=== PATIENT | male | born 1940 | race Caucasian/White ===

== ENCOUNTER 2018-12-16 11:32 | Emergency (ER) | payer BC, MEDICARE, OTHER ==
--- NOTE | 2018-12-16 11:47 | EDM.PDOC ---
ED HPI GENERAL MEDICAL PROBLEM - General Chief Complaint: Neuro Symptoms/Deficits Stated Complaint: STROKE? Time Seen by Provider: 12/16/18 11:35 Source of Information: Reports: Patient, EMS History Limitations: Reports: No Limitations - History of Present Illness INITIAL COMMENTS - FREE TEXT/NARRATIVE: 78-year-old male brought in by EMS with onset of left-sided weakness and left facial droop with dysarthria over the past hour and 20 minutes. He has a history of a previous stroke 2 years ago. Symptoms sound like they started or at least became worse an hour and 20 minutes ago but it's somewhat unclear because he claims he "felt it coming on last night". He can't specifically say what he means, he denies any weakness last night. He has had no other symptoms such as headache, visual disturbance, chest pain, shortness of breath, fever or chills, shortness of breath or nausea or vomiting. He has not missed any medications. Initial EMS evaluation on scene revealed a blood glucose of 159, patient was hypertensive at 206/117, afebrile, and in a normal sinus rhythm with first-degree block. On arrival to the emergency room the patient still had left facial droop and weakness, with slight decreased strength of left grasp. Lower extremity strength was difficult to assess because of chronic left hip pain. Onset: Unknown/Unsure (Symptoms at least worsened or possibly started 80 minutes ago) Associated Symptoms: Reports: Weakness (Left face and left arm). 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/IO denies Pain Score (Numeric/FACES): 0 - Related Data Allergies Allergy/AdvReac Type Severity Reaction Status Date / Time No Known Allergies Allergy Verified 05/28/15 09:54 Home Meds: Home Meds Finasteride [Proscar] 5 mg PO DAILY 12/16/18 [History] Metoprolol Tartrate [Lopressor] 50 mg PO BID 12/16/18 [History] Pantoprazole Sodium [Protonix] 40 mg PO DAILY 12/16/18 [History] Solifenacin [Vesicare] 5 mg PO DAILY 12/16/18 [History] Tamsulosin [Tamsulosin 24 Hr] 0.4 mg PO DAILY 12/16/18 [History] Thiamine [Vitamin B-1] 100 mg PO DAILY 12/16/18 [History] amLODIPine Besylate [Norvasc] 10 mg PO DAILY 12/16/18 [History] ED ROS GENERAL - Review of Systems Review Of Systems: See Below Constitutional: Denies: Fever, Chills, Malaise HEENT: Denies: Vision Change Respiratory: Denies: Shortness of Breath Cardiovascular: Denies: Chest Pain GI/Abdominal: Denies: Abdominal Pain, Nausea, Vomiting : Reports: Incontinence (Chronic) Neurological: Denies: Dizziness, Headache Psychiatric: Reports: No Symptoms ED EXAM, NEURO - Physical Exam Exam: See Below Exam Limited By: No Limitations General Appearance: Alert, No Apparent Distress Eye Exam: Bilateral Eye: EOMI Throat/Mouth: Other (On arrival to the emergency room the patient had significant obvious left facial droop and dysarthria) Head Exam: Atraumatic Respiratory/Chest: No Respiratory Distress, Lungs Clear Cardiovascular: Regular Rate, Rhythm Neurological: Alert, Oriented x 3, Other (Left facial droop and left arm weakness is present) Course - Vital Signs Last Recorded V/S: Last Vital Signs Temp 99.1 F 12/16/18 11:55 Pulse 73 12/16/18 11:55 Resp 10 L 12/16/18 11:55 BP 204/115 H 12/16/18 11:55 Pulse Ox 97 12/16/18 11:55 - Orders/Labs/Meds Orders: Active Orders 24 hr Category Date Time Status Head wo Cont [CT] Stat Exams 12/16/18 11:33 Taken Labs: Laboratory Tests 12/16/18 12/16/18 12/16/18 Range/Units 11:40 11:40 11:40 WBC 7.1 (4.5-11.0) K/uL RBC 4.88 (4.30-5.90) M/uL Hgb 14.9 (12.0-15.0) g/dL Hct 45.8 (40.0-54.0) % MCV 94 (80-98) fL MCH 31 (27-31) pg MCHC 33 (32-36) % Plt Count 236 (150-400) K/uL Neut % (Auto) 65 (36-66) % Lymph % (Auto) 25 (24-44) % [place] % (Auto) 8 H (2-6) % Eos % (Auto) 2 (2-4) % Baso % (Auto) 0 (0-1) % PT 11.1 (9.5-12.0) sec INR 1.03 (0.80-1.20) Sodium 140 (140-148) mmol/L Potassium 4.2 (3.6-5.2) mmol/L Chloride 103 (100-108) mmol/L Carbon Dioxide 28 (21-32) mmol/L Anion Gap 8.8 (5.0-14.0) mmol/L BUN 14 (7-18) mg/dL Creatinine 1.3 (0.8-1.3) mg/dL Est Cr Clr Drug Dosing TNP Estimated GFR (MDRD) 53 L (>60) Glucose 129 H (74-106) mg/dL Calcium 9.0 (8.5-10.1) mg/dL Total Bilirubin 0.7 (0.2-1.0) mg/dL AST 18 (15-37) U/L ALT 13 (12-78) U/L Alkaline Phosphatase 78 (46-116) U/L Total Protein 7.4 (6.4-8.2) g/dL Albumin 3.6 (3.4-5.0) g/dL Globulin 3.8 H (2.3-3.5) g/dL Albumin/Globulin Ratio 1.0 L (1.2-2.2) - Re-Assessments/Exams Free Text/Narrative Re-Assessment/Exam: 12/16/18 12:17 CBC, CMP and INR was obtained. Patient was urgently transferred to the CT scan for a head CT. This showed significant atrophy but no hemorrhage, several small lacunar strokes were present. Patient returned from CT scan and his symptoms were improving, his dysarthria was improved and facial droop had lessened. There was still some objective findings. Air care was on the ground waiting so acceptance was obtained from Dr. Perez at [facility] in [place], and the patient was transferred. No further intervention. 12/16/18 16:17 INR was 1, CBC and CMP were completely nonspecific and basically normal. Departure - Departure Time of Disposition: 12:21 Disposition: DC/Tfer to Other 70 Clinical Impression: Acute cerebrovascular accident (CVA) Hypertension Qualifiers: Hypertension type: essential hypertension Qualified Code(s): I10 - Essential ( primary) hypertension - Discharge Information Instructions: Coronary Artery Disease, Male, Ischemic Stroke, [id number] Referrals: PCP,None [Primary Care Provider] - Forms: ED Department Discharge Care Plan Goals: Patient was urgently transferred to [facility] in [place] for neuro evaluation and possible stroke intervention. He was accepted at 11:[address] Perez. - My Orders Last 24 Hours: My Active Orders 12/16/18 11:33 Head wo Cont [CT] Stat - Assessment/Plan Last 24 Hours: My Active Orders 12/16/18 11:33 Head wo Cont [CT] Stat
--- NOTE | 2018-12-17 11:47 | CRLCT ---
Final Report: INDICATION: Left-sided weakness; stroke . Comparison: None. TECHNIQUE: CT head without intravenous contrast. FINDINGS: No intracranial hemorrhage. No mass lesions. No evidence of shift of the midline structures. The calvarium is unremarkable. Extensive periventricular low density diffuse secondary to small vessel disease. Brain atrophy. Small lacunar infarcts identified in the basal ganglia bilaterally. IMPRESSION: 1. Extensive periventricular low densities secondary small vessel disease. 2. No intracranial hemorrhage or mass lesions. 3. Brain atrophy. Please note that all CT scans at this facility use dose modulation, iterative reconstruction, and/or weight-based dosing when appropriate to reduce radiation dose to as low as reasonably achievable. Dictated by Noy Scott MD @ Dec 16 2018 11:52AM Signed by: Noy Scott MD @12/16/2018 11:56:14 AM (Electronic Signature) MTDD
== END 2018-12-16 12:21 | disposition other institution (70) ==
LOC: JP.ED 11:32
DX: I63.9 Cerebral infarction, unspecified (principal); I10 Essential (primary) hypertension; Z79.899 Other long term (current) drug therapy
CPT/HCPCS: 36415; 70450; 80053; 85025; 85610; 99285-25

== ENCOUNTER 2019-01-02 04:10 | Emergency (ER) | payer MEDICARE ==
[2019-01-02] MEDS ORDERED: Aspirin 81 MG Tab.Chew PO ONE (04:34)
--- NOTE | 2019-01-02 04:37 | EDM.PDOC ---
ED HPI GENERAL MEDICAL PROBLEM - General Chief Complaint: Cardiovascular Problem Stated Complaint: MEDICAL VIA NORTH Time Seen by Provider: 01/02/19 04:32 Source of Information: Reports: Patient, RN Notes Reviewed History Limitations: Reports: No Limitations - History of Present Illness INITIAL COMMENTS - FREE TEXT/NARRATIVE: 78-year-old gentleman presents emergency department today complaint of chest pain, he had chest pain earlier in the afternoon 1 bout of nausea and vomiting in the early evening but arrived at the emergency department at 4 AM. At this time is chest pain-free no nausea vomiting no diaphoresis no shortness of breath , recently had CVA earlier this month complains of no neurologic changes denies Pain Score (Numeric/FACES): 0 - Related Data Allergies Allergy/AdvReac Type Severity Reaction Status Date / Time No Known Allergies Allergy Verified 01/02/19 04:13 Home Meds: Home Meds Finasteride [Proscar] 5 mg PO DAILY 12/16/18 [History] Metoprolol Tartrate [Lopressor] 50 mg PO BID 12/16/18 [History] Pantoprazole Sodium [Protonix] 40 mg PO DAILY 12/16/18 [History] Solifenacin [Vesicare] 5 mg PO DAILY 12/16/18 [History] Tamsulosin [Tamsulosin 24 Hr] 0.4 mg PO DAILY 12/16/18 [History] Thiamine [Vitamin B-1] 100 mg PO DAILY 12/16/18 [History] amLODIPine Besylate [Norvasc] 10 mg PO DAILY 12/16/18 [History] Lisinopril 20 mg PO DAILY 01/02/19 [History] levETIRAcetam [Keppra] 500 mg PO TID 01/02/19 [History] Past Medical History HEENT History: Reports: Impaired Vision Cardiovascular History: Reports: Hypertension Respiratory History: Reports: Other (See Below) Gastrointestinal History: Reports: Other (See Below) Other Gastrointestinal History: stage 3 kidney disease Musculoskeletal History: Reports: Other (See Below) Other Musculoskeletal History: r hip pain chronic Neurological History: Reports: CVA 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 - Infectious Disease History Infectious Disease History: Reports: Mumps - Past Surgical History GI Surgical History: Reports: Hernia, Inguinal Social & Family History - Tobacco Use Smoking Status *Q: Former Smoker Years of Tobacco use: 55 Packs/Tins Daily: 1 Used Tobacco, but Quit: Yes Month/Year Tobacco Last Used: 2013 Second Hand Smoke Exposure: No - Caffeine Use Caffeine Use: Reports: Coffee - Alcohol Use Days Per Week of Alcohol Use: 0 - Recreational Drug Use Recreational Drug Use: No ED ROS GENERAL - Review of Systems Review Of Systems: See Below Constitutional: Reports: No Symptoms HEENT: Reports: No Symptoms Respiratory: Reports: No Symptoms Cardiovascular: Reports: Chest Pain GI/Abdominal: Reports: Nausea, Vomiting : Reports: No Symptoms Musculoskeletal: Reports: No Symptoms ED EXAM, GENERAL - Physical Exam Exam: See Below Exam Limited By: No Limitations General Appearance: Alert, WD/WN, No Apparent Distress Neck: Normal Inspection, Supple, Non-Tender, Full Range of Motion Respiratory/Chest: No Respiratory Distress, Lungs Clear, Normal Breath Sounds, No Accessory Muscle Use, Chest Non-Tender Cardiovascular: Regular Rate, Rhythm, No Murmur GI/Abdominal: Soft, Non-Tender Course - Vital Signs Last Recorded V/S: Last Vital Signs Temp 98.6 F 01/02/19 04:16 Pulse 66 01/02/19 04:16 Resp 21 H 01/02/19 04:16 BP 168/78 H 01/02/19 04:16 Pulse Ox 91 L 01/02/19 04:16 - Orders/Labs/Meds Orders: Active Orders 24 hr Category Date Time Status Cardiac Monitoring [RC] .As Directed Care 01/02/19 04:35 Active EKG Documentation Completion [RC] ASDIRECTED Care 01/02/19 04:35 Active EKG 12 Lead [EK] Stat Ther 01/02/19 04:35 Ordered Labs: Laboratory Tests 01/02/19 01/02/19 Range/Units 04:40 04:40 WBC 10.8 (4.5-11.0) K/uL RBC 4.27 L (4.30-5.90) M/uL Hgb 13.0 (12.0-15.0) g/dL Hct 40.5 (40.0-54.0) % MCV 95 (80-98) fL MCH 30 (27-31) pg MCHC 32 (32-36) % Plt Count 230 (150-400) K/uL Neut % (Auto) 87 H (36-66) % Lymph % (Auto) 6 L (24-44) % [place] % (Auto) 7 H (2-6) % Eos % (Auto) 0 L (2-4) % Baso % (Auto) 0 (0-1) % Sodium 141 (140-148) mmol/L Potassium 4.1 (3.6-5.2) mmol/L Chloride 103 (100-108) mmol/L Carbon Dioxide 26 (21-32) mmol/L Anion Gap 11.9 (5.0-14.0) mmol/L BUN 15 (7-18) mg/dL Creatinine 1.2 (0.8-1.3) mg/dL Est Cr Clr Drug Dosing 45.90 mL/min Estimated GFR (MDRD) 58 L (>60) Glucose 150 H (74-106) mg/dL Calcium 8.8 (8.5-10.1) mg/dL Total Bilirubin 1.8 H D (0.2-1.0) mg/dL AST 478 H D (15-37) U/L ALT 490 H (12-78) U/L Alkaline Phosphatase 153 H D (46-116) U/L Troponin I < 0.017 (0.000-0.056) ng/mL Total Protein 7.2 (6.4-8.2) g/dL Albumin 3.5 (3.4-5.0) g/dL Globulin 3.7 H (2.3-3.5) g/dL Albumin/Globulin Ratio 1.0 L (1.2-2.2) Meds: Medications Discontinued Medications Generic Name Dose Route Start Last Admin Trade Name Freq PRN Reason Stop Dose Admin Aspirin 324 mg 01/02/19 04:34 01/02/19 04:56 Aspirin PO 01/02/19 04:35 Not Given ONETIME ONE Departure - Departure Time of Disposition: 06:34 Disposition: Home, Self-Care 01 Condition: Fair Clinical Impression: Atypical chest pain Referrals: PCP,None [Primary Care Provider] - Forms: ED Department Discharge Additional Instructions: Continue with regular medications, Please followup with your primary care provider in 2-3 days if not better, please call return to the emergency department with worsening of symptoms. - My Orders Last 24 Hours: My Active Orders 01/02/19 04:35 Cardiac Monitoring [RC] .As Directed EKG Documentation Completion [RC] ASDIRECTED EKG 12 Lead [EK] Stat - Assessment/Plan Last 24 Hours: My Active Orders 01/02/19 04:35 Cardiac Monitoring [RC] .As Directed EKG Documentation Completion [RC] ASDIRECTED EKG 12 Lead [EK] Stat Plan: Assessment Acuity = acute Site and laterality = atypical chest pain Etiology = unknown etiology Manifestations = none Location of injury = Home Lab values = CBC unremarkable, CMP does have elevated liver enzymes AST at 478 AST of 490, EKG demonstrates a sinus rhythm with no signs of ischemia chest x- ray shows some atelectasis Plan Resume regular medications. Remained chest pain-free while in the emergency department him follow-up with his primary care to 3 days if not better This note was dictated using [employer] voice recognition software please call with any questions on syntax or grammar.
--- NOTE | 2019-01-02 05:55 | CRLCR ---
INDICATION: Chest pain TECHNIQUE: Chest 1 view COMPARISON: None FINDINGS: Cardiovascular and mediastinum: Normal heart size with atherosclerotic calcification and aortic tortuosity. Lungs and pleural spaces: Low lung volumes with some patchy airspace disease, greater on the right. Mild elevation right hemidiaphragm for Bones and soft tissues: No significant findings. IMPRESSION: Hypoaeration with patchy bibasilar airspace disease, likely atelectasis. Dictated by Portillo Chambers MD @ Jan 02 2019 5:51AM Signed by Dr. Portillo Chambers @ Jan 02 2019 5:53AM
== END 2019-01-02 08:39 | disposition home or self-care (01) ==
LOC: JP.ED 04:10
DX: R07.9 Chest pain, unspecified (principal); I10 Essential (primary) hypertension; Z79.899 Other long term (current) drug therapy; Z87.891 Personal history of nicotine dependence
CPT/HCPCS: 36415; 71045; 80053; 84484; 85025; 93005; 99283; 99285-25

== ENCOUNTER 2020-01-26 05:41 | Emergency (ER) | payer MEDICARE ==
--- NOTE | 2020-01-26 07:31 | EDM.PDOC ---
ED HPI GENERAL MEDICAL PROBLEM - General Chief Complaint: General Stated Complaint: MEDICAL VIA NORTH Time Seen by Provider: 01/26/20 07:12 Source of Information: Reports: Patient History Limitations: Reports: No Limitations - History of Present Illness INITIAL COMMENTS - FREE TEXT/NARRATIVE: 79-year-old resting quietly in the bed, has been here for over an hour but had not been seen when I arrived because of other acute patients. Over the last hour and a half has been resting quietly, he said he is "fine". He was sent in because of a fall at his assisted living, he said he was going to the bathroom and it "did not work out for him". He did not trip or stumble, his legs got weak so he just went to the floor. It is questionable how hard he has fallen, he does complain of some chronic back pain in the left hip seems sore. He has a gurgly cough but that is chronic since his stroke. No fevers or chills, no nausea or vomiting, no head injury, denies neck pain or shortness of breath. Onset: Unknown/Unsure (Sometime overnight) Location: Reports: Lower Extremity, Left (Only complaint I can get from the patient is his left hip is a little sore) Improves with: Reports: Other (Hip is painful to palpation and rotation) Associated Symptoms: Reports: Other (Chronic pulmonary congestion since stroke) - Related Data Allergies Allergy/AdvReac Type Severity Reaction Status Date / Time No Known Allergies Allergy Verified 01/26/20 06:06 Home Meds: Home Meds Finasteride [Proscar] 5 mg PO DAILY 12/16/18 [History] Metoprolol Tartrate [Lopressor] 50 mg PO BID 12/16/18 [History] Pantoprazole Sodium [Protonix] 40 mg PO DAILY 12/16/18 [History] Tamsulosin [Tamsulosin 24 Hr] 0.4 mg PO DAILY 12/16/18 [History] amLODIPine Besylate [Norvasc] 10 mg PO DAILY 12/16/18 [History] Lisinopril 20 mg PO DAILY 01/02/19 [History] levETIRAcetam [Keppra] 500 mg PO BID 01/02/19 [History] Acetaminophen [Tylenol] 650 mg PO Q6H PRN 11/28/19 [History] Ibuprofen 600 mg PO TID PRN 11/28/19 [History] Oxybutynin Chloride [Ditropan Xl] 5 mg PO TID 11/28/19 [History] Acetaminophen [Tylenol] 650 mg PO TID 01/03/20 [History] Magnesium Hydroxide [Milk of Magnesia] 30 ml PO DAILY PRN 01/03/20 [History] Miconazole Nitrate [Desenex] 43 gm TP ASDIRECTED 01/03/20 [History] Sertraline [Zoloft] 50 mg PO DAILY 01/03/20 [History] Past Medical History HEENT History: Reports: Impaired Vision Cardiovascular History: Reports: Hypertension Respiratory History: Reports: Other (See Below) Gastrointestinal History: Reports: Other (See Below) Other Gastrointestinal History: stage 3 kidney disease Musculoskeletal History: Reports: Other (See Below) Other Musculoskeletal History: R hip pain Neurological History: Reports: CVA 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 Denies: Shortness of Breath Cardiovascular: Denies: Chest Pain, Palpitations GI/Abdominal: Denies: Abdominal Pain, Nausea, Vomiting Musculoskeletal: Reports: Back Pain, Other (Left hip pain) Neurological: Reports: Confusion (According to the staff he is at some confusion which is unusual for the patient) Psychiatric: Reports: No Symptoms ED EXAM, GENERAL - Physical Exam Exam: See Below Exam Limited By: No Limitations General Appearance: Alert, No Apparent Distress Eye Exam: Bilateral Eye: EOMI Head: Atraumatic Neck: Supple, Non-Tender Respiratory/Chest: Rhonchi (Diffuse rhonchi, no wheezing) Cardiovascular: Regular Rate, Rhythm. No: Tachycardia GI/Abdominal: Soft, Non-Tender Extremities: Other (Patient reacts with tenderness or discomfort with palpation of the lateral left hip or passive rotation of the hip. There is no asymmetry or shortening or rotation of the legs.) Neurological: Alert, Confused (A little confused to time) Psychiatric: Normal Affect, Normal Mood (Very pleasant, answering questions appropriately) Skin Exam: Warm, Dry Course - Vital Signs Last Recorded V/S: Last Vital Signs Temp 97.9 F 01/26/20 06:08 Pulse 78 01/26/20 06:08 Resp 23 H 01/26/20 06:08 BP 142/77 H 01/26/20 06:08 Pulse Ox 94 L 01/26/20 06:08 - Orders/Labs/Meds Meds: Medications Discontinued Medications Generic Name Dose Route Start Last Admin Trade Name Yovana PRN Reason Stop Dose Admin Tramadol HCl 50 mg 01/26/20 07:57 01/26/20 08:11 Ultram PO 01/26/20 07:58 50 mg ONETIME ONE Administration - Re-Assessments/Exams Free Text/Narrative Re-Assessment/Exam: 01/26/20 07:30 A left hip x-ray will be obtained as well as a 1 view chest x-ray. He does not appear to have any acute problems with his hip x-ray is negative we may be able to get him back to his assisted living at the memory care unit. 01/26/20 07:57 Patient is a poor historian as he went back to x-ray and said his right hip hurt more than his left. The pelvis x-ray was obtained showing both hips, this was compared to previous and that stable with no new fracture. Chest x-ray also shows chronic basilar scarring or infiltrates, but are also stable. Patient was given 1 oral tramadol and will be discharged home. Departure - Departure Time of Disposition: 08:58 Disposition: Home, Self-Care 01 Clinical Impression: Weakness Fall Qualifiers: Encounter type: initial encounter Qualified Code(s): W19.XXXA - Unspecified fall, initial encounter Hip pain, chronic Qualifiers: Laterality: bilateral Qualified Code(s): M25.551 - Pain in right hip - Discharge Information Instructions: Weakness, [id number] Referrals: PCP,None [Primary Care Provider] - Forms: ED Department Discharge Care Plan Goals: Continue your current medications, and activity as tolerated. Recheck with your regular doctor if you have any persistent concerns, or return if worsening. Sepsis Event Note (ED) - Evaluation Sepsis Screening Result: No Definite Risk - Focused Exam Vital Signs: Vital Signs Temp Pulse Resp BP Pulse Ox 01/26/20 06:08 97.9 F 78 23 H 142/77 H 94 L 01/26/20 05:54 97.9 F 78 23 H 142/77 H 94 L
[2020-01-26] MEDS ORDERED: traMADol 50 MG Tab PO ONE (07:57)
--- NOTE | 2020-01-26 09:18 | CR ---
CHEST: Portable 01/26/2020 at 07 36 CLINICAL HISTORY:Fall, cough, hypoxia COMPARISON:2019 FINDINGS: There is chronic elevation right hemidiaphragm. There is persistent patchy density at the right lung base which may be scarring and/or chronic atelectasis. Less than optimal inspiration exaggerates lung markings. There is generalized interstitial prominence which is similar to prior study. There are atherosclerotic changes in the aorta. IMPRESSION: Poor inspiratory level exaggerates lung markings. There are some underlying chronic interstitial disease and some right basal subsegmental atelectasis. Hip Min 2V w Pelvis Bi CLINICAL HISTORY: Fall FINDINGS: There is severe deformity in the right hip with near total loss of the joint space as well as significant periarticular spurring. There is some flattening of the femoral head. There are moderate to severe changes in the left hip. No fracture is identified. 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
== END 2020-01-26 08:58 | disposition home or self-care (01) ==
LOC: JP.ED 05:41
DX: M25.551 Pain in right hip (principal); R53.1 Weakness; I12.9 Hypertensive chronic kidney disease with stage 1 through stage 4 chronic kidney disease, or unspecified chronic kidney disease; N18.30 Chronic kidney disease, stage 3 unspecified; Z86.73 Personal history of transient ischemic attack (TIA), and cerebral infarction without residual deficits; Z79.899 Other long term (current) drug therapy; Z87.891 Personal history of nicotine dependence
CPT/HCPCS: 71045; 73521; 99285; A9270; 99283

== ENCOUNTER 2020-09-05 14:21 | Emergency (ER) | payer MEDICARE ==
--- NOTE | 2020-09-05 15:30 | EDM.PDOC ---
ED HPI GENERAL MEDICAL PROBLEM - General Chief Complaint: Lower Extremity Injury/Pain Stated Complaint: X-RAY RIGHT HIP Time Seen by Provider: 09/05/20 15:25 Source of Information: Reports: Patient, Family, Old Records History Limitations: Reports: No Limitations - History of Present Illness INITIAL COMMENTS - FREE TEXT/NARRATIVE: 80 yo male resident of a local [facility] was sent over for worsening of chronic R hip pain after a couple of recent falls. Onset: Unknown/Unsure Duration: Day(s):, Constant Location: Reports: Lower Extremity, Right Quality: Reports: Ache Severity: Moderate Improves with: Reports: Rest Worsens with: Reports: Movement Context: Reports: Trauma Associated Symptoms: Reports: No Other Symptoms Treatments TEMPERER: Reports: Other (see below) (none) - Related Data Allergies Allergy/AdvReac Type Severity Reaction Status Date / Time No Known Allergies Allergy Verified 09/05/20 15:18 Home Meds: Home Meds Finasteride [Proscar] 5 mg PO DAILY 12/16/18 [History] Tamsulosin [Tamsulosin 24 Hr] 0.4 mg PO DAILY 12/16/18 [History] amLODIPine Besylate [Norvasc] 10 mg PO DAILY 12/16/18 [History] Lisinopril 10 mg PO DAILY 01/02/19 [History] levETIRAcetam [Keppra] 500 mg PO BID 01/02/19 [History] Acetaminophen [Tylenol] 650 mg PO Q6H PRN 11/28/19 [History] Ibuprofen 600 mg PO TID PRN 11/28/19 [History] Oxybutynin Chloride [Ditropan Xl] 5 mg PO TID 11/28/19 [History] Acetaminophen [Tylenol] 650 mg PO TID 01/03/20 [History] Magnesium Hydroxide [Milk of Magnesia] 30 ml PO DAILY PRN 01/03/20 [History] Miconazole Nitrate [Desenex] 43 gm TP ASDIRECTED 01/03/20 [History] Sertraline [Zoloft] 1.5 tab PO DAILY 01/03/20 [History] Ergocalciferol (Vitamin D2) [Vitamin D2] 1.25 mg PO DAILY 09/05/20 [History] Famotidine 40 mg PO DAILY 09/05/20 [History] Past Medical History HEENT History: Reports: Impaired Vision Cardiovascular History: Reports: Hypertension Respiratory History: Reports: Other (See Below) Gastrointestinal History: Reports: Other (See Below) Other Gastrointestinal History: stage 3 kidney disease Musculoskeletal History: Reports: Other (See Below) Other Musculoskeletal History: R hip pain Neurological History: Reports: CVA 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 - Infectious Disease History Infectious Disease History: Reports: Chicken Pox, Measles, Mumps - Past Surgical History GI Surgical History: Reports: Hernia, Inguinal Social & Family History - Caffeine Use Caffeine Use: Reports: Coffee Review of Systems - Review of Systems Review Of Systems: See Below Constitutional: Reports: No Symptoms Respiratory: Reports: No Symptoms Cardiovascular: Reports: No Symptoms Genitourinary: Reports: No Symptoms Musculoskeletal: Reports: No Symptoms Skin: Reports: No Symptoms Neurological: Reports: No Symptoms ED EXAM, GENERAL - Physical Exam Exam: See Below Exam Limited By: No Limitations General Appearance: Alert, WD/WN, No Apparent Distress Eye Exam: Bilateral Eye: Normal Inspection Ears: Normal External Exam, Normal Canal, Hearing Loss Ear Exam: Bilateral Ear: Auricle Normal, Canal Normal Nose: Normal Inspection, No Blood Throat/Mouth: Normal Inspection, Normal Lips, Normal Oropharynx, Normal Voice, No Airway Compromise Head: Atraumatic, Normocephalic Neck: Normal Inspection Respiratory/Chest: No Respiratory Distress, Lungs Clear, Normal Breath Sounds, No Accessory Muscle Use Cardiovascular: Regular Rate, Rhythm, No Edema Extremities: Normal Inspection, No Pedal Edema, Leg Pain (R hip), Limited Range of Motion (R hip area). No: Normal Range of Motion, Non-Tender, Pedal Edema Neurological: Alert, Oriented, CN II-XII Intact, No Motor/Sensory Deficits Psychiatric: Normal Affect, Normal Mood Skin Exam: Warm, Dry, Intact, Normal Color, No Rash Course - Vital Signs Text/Narrative:: [facility] Ortho called @ 1600h Last Recorded V/S: Last Vital Signs Temp 36.4 C 09/05/20 15:30 Pulse 77 09/05/20 15:30 Resp 16 09/05/20 15:30 BP 112/68 09/05/20 15:30 Pulse Ox 95 09/05/20 15:30 - Orders/Labs/Meds Orders: Active Orders 24 hr Category Date Time Status Chest 1V Frontal [CR] Stat Exams 09/05/20 15:37 Ordered Hip Min 2V or 3V w Pelvis Rt [CR] Stat Exams 09/05/20 14:46 Taken Sodium Chloride 0.9% [Saline Flush] Med 09/05/20 15:37 Ordered 10 ml FLUSH ASDIRECTED PRN Saline Lock Insert [OM.PC] Routine Oth 09/05/20 15:37 Ordered Medication Orders Sodium Chloride (Sodium Chloride 0.9% 10 Ml Syringe) 10 ml FLUSH ASDIRECTED PRN PRN Reason: Keep Vein Open Meds: Medications Generic Name Dose Route Start Last Admin Trade Name Freq PRN Reason Stop Dose Admin Sodium Chloride 10 ml 09/05/20 15:37 Sodium Chloride 0.9% 10 Ml Syringe FLUSH ASDIRECTED PRN Keep Vein Open Discontinued Medications Generic Name Dose Route Start Last Admin Trade Name Freq PRN Reason Stop Dose Admin Oxycodone/Acetaminophen 1 tab 09/05/20 15:37 Acetaminophen/Oxycodone 325-5 Mg Tab PO 09/05/20 15:38 ONETIME STA - Radiology Interpretation Free Text/Narrative:: L hip fx-intertroch hip fx with avulsion CXR-neg Departure - Departure Time of Disposition: 16:25 Disposition: DC/Tfer to Acute Hospital 02 Condition: Fair Clinical Impression: Fracture, intertrochanteric, right femur Qualifiers: Encounter type: initial encounter Fracture type: closed Fracture alignment: nondisplaced Qualified Code(s): S72.144A - Nondisplaced intertrochanteric fracture of right femur, initial encounter for closed fracture Clinical Impression: (Ruled Out): Intertrochanteric fracture of left hip - Discharge Information Referrals: PCP,None [Primary Care Provider] - Forms: ED Department Discharge Sepsis Event Note (ED) - Focused Exam Vital Signs: Vital Signs Temp Pulse Resp BP Pulse Ox 09/05/20 15:30 36.4 C 77 16 112/68 95 09/05/20 15:07 36.4 C 77 16 112/68 95 - My Orders Last 24 Hours: My Active Orders 09/05/20 14:46 Hip Min 2V or 3V w Pelvis Rt [CR] Stat 09/05/20 15:37 Chest 1V Frontal [CR] Stat Sodium Chloride 0.9% [Saline Flush] 10 ml FLUSH ASDIRECTED PRN Saline Lock Insert [OM.PC] Routine - Assessment/Plan Last 24 Hours: My Active Orders 09/05/20 14:46 Hip Min 2V or 3V w Pelvis Rt [CR] Stat 09/05/20 15:37 Chest 1V Frontal [CR] Stat Sodium Chloride 0.9% [Saline Flush] 10 ml FLUSH ASDIRECTED PRN Saline Lock Insert [OM.PC] Routine
[2020-09-05] MEDS ORDERED: Sodium Chloride 0.9% 10 ML Syringe FLUSH PRN (15:37)
[2020-09-05] MEDS ORDERED: Acetaminophen/oxyCODONE 325-5 MG Tab PO STA (15:37)
--- NOTE | 2020-09-05 15:43 | CR ---
Hip Min 2V or 3V w Pelvis Rt CLINICAL HISTORY: Pain, fall FINDINGS: There is a comminuted intertrochanteric fracture with avulsion of the lesser trochanter. Patient has underlying severe degenerative change in the right hip. 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
--- NOTE | 2020-09-06 09:44 | CR ---
CHEST: Portable 09/05/2020 at 3:53 PM CLINICAL HISTORY:Preop COMPARISON:2019 FINDINGS: There is some pleural parenchymal scarring in the right lung base. There is minimal patchy density in the left lower lung field which is similar to prior studies and likely represent some scarring and fibrosis. Heart and pulmonary vascularity are normal. There are atherosclerotic changes in the aorta. Impression: Pleural parenchymal scarring in both lung bases left greater than right No acute cardiopulmonary process.
== END 2020-09-05 16:51 ==
LOC: JP.ED 14:21
DX: S72.144A Nondisplaced intertrochanteric fracture of right femur, initial encounter for closed fracture (principal); I10 Essential (primary) hypertension; Z20.822 Contact with and (suspected) exposure to COVID-19; W19.XXXA Unspecified fall, initial encounter
CPT/HCPCS: 71045; 73502; 99284; A9270; U0002

== ENCOUNTER 2020-11-19 18:53 | Emergency (ER) | payer MEDICARE ==
--- NOTE | 2020-11-19 20:34 | EDM.PDOC ---
ED HPI GENERAL MEDICAL PROBLEM - General Chief Complaint: Respiratory Problem Stated Complaint: MEDICAL VIA [facility] Time Seen by Provider: 11/19/20 19:01 Source of Information: Reports: EMS History Limitations: Reports: Other (Patient arrives from [facility] with history of significant dementia) - History of Present Illness INITIAL COMMENTS - FREE TEXT/NARRATIVE: Abby is an 80-year-old male sent in from [facility] for evaluation of possible aspiration. Patient was in his usual state of health until he went to the [facility]. Afterwards they did a spotcheck oximetry and found him to be hypoxic an SPO2 between 86 and 88%. EMS was called and they have put nasal cannula with 4 L bringing up to 95%. The patient has not had any fever. He has not had a significant cough although he did have some coughing after eating today and they were concerned of a possible aspiration event. The patient has a history of a stroke and dementia. He does have a POLST stating he is DNR/DNI. The daughter who lives in [place] had asked the [facility] to observe the patient and they in turn sent him in for evaluation. The accompanying paperwork from the [facility] facility was reviewed as well as the patient's [facility] medical record chart. - Related Data Allergies Allergy/AdvReac Type Severity Reaction Status Date / Time No Known Allergies Allergy Verified 09/05/20 15:18 Home Meds: Home Meds Finasteride [Proscar] 5 mg PO DAILY 12/16/18 [History] Tamsulosin [Tamsulosin 24 Hr] 0.4 mg PO DAILY 12/16/18 [History] amLODIPine Besylate [Norvasc] 10 mg PO DAILY 12/16/18 [History] Lisinopril 10 mg PO DAILY 01/02/19 [History] levETIRAcetam [Keppra] 500 mg PO BID 01/02/19 [History] Acetaminophen [Tylenol] 650 mg PO Q6H PRN 11/28/19 [History] Ibuprofen 600 mg PO TID PRN 11/28/19 [History] Oxybutynin Chloride [Ditropan Xl] 5 mg PO TID 11/28/19 [History] Acetaminophen [Tylenol] 650 mg PO TID 01/03/20 [History] Magnesium Hydroxide [Milk of Magnesia] 30 ml PO DAILY PRN 01/03/20 [History] Miconazole Nitrate [Desenex] 43 gm TP ASDIRECTED 01/03/20 [History] Sertraline [Zoloft] 1.5 tab PO DAILY 01/03/20 [History] Ergocalciferol (Vitamin D2) [Vitamin D2] 1.25 mg PO DAILY 09/05/20 [History] Famotidine 40 mg PO DAILY 09/05/20 [History] Past Medical History HEENT History: Reports: Impaired Vision Cardiovascular History: Reports: Hypertension Respiratory History: Reports: Other (See Below) Gastrointestinal History: Reports: Other (See Below) Other Gastrointestinal History: stage 3 kidney disease Genitourinary History: Reports: Urinary Incontinence Musculoskeletal History: Reports: Other (See Below) Other Musculoskeletal History: R hip pain Neurological History: Reports: CVA 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 Psychiatric History: Reports: Dementia - Infectious Disease History Infectious Disease History: Reports: Chicken Pox, Measles, Mumps - Past Surgical History Head Surgeries/Procedures: Reports: None HEENT Surgical History: Reports: Cataract Surgery Cardiovascular Surgical History: Reports: None Respiratory Surgical History: Reports: None GI Surgical History: Reports: Hernia, Inguinal Neurological Surgical History: Reports: None Musculoskeletal Surgical History: Reports: Other (See Below) Other Musculoskeletal Surgeries/Procedures:: hip pain Dermatological Surgical History: Reports: None Social & Family History - Tobacco Use Tobacco Use Status *Q: Unknown Ever Used Tobacco - Caffeine Use Caffeine Use: Reports: Other Other Caffeine Use: unknown ED ROS GENERAL - Review of Systems Review Of Systems: Unable To Obtain Reason Not Obtained: Patient has significant dementia, not able to answer questions ED EXAM, GENERAL - Physical Exam Exam: See Below Exam Limited By: No Limitations General Appearance: Alert, Obese Eye Exam: Bilateral Eye: PERRL Nose: Normal Inspection Throat/Mouth: Normal Inspection, Normal Oropharynx, No Airway Compromise Head: Atraumatic, Normocephalic Neck: Normal Inspection Respiratory/Chest: No Accessory Muscle Use, Decreased Breath Sounds (Bibasilar decreased breath sounds), Crackles (Bibasilar crackles), Rhonchi (Bibasilar rhonchi). No: Retractions Cardiovascular: Normal Peripheral Pulses, Regular Rate, Rhythm, No Murmur Peripheral Pulses: 2+: Radial (L), Radial (R) GI/Abdominal: Normal Bowel Sounds, Soft, Non-Tender Extremities: Normal Inspection Neurological: Alert, Inattentive, Unresponsive Psychiatric: Normal Affect, Normal Mood Skin Exam: Warm, Dry Lymphatic: No Adenopathy Course - Vital Signs Last Recorded V/S: Last Vital Signs Temp 36.0 C L 11/19/20 19:39 Pulse 82 11/19/20 19:39 Resp 16 11/19/20 19:39 BP 131/74 11/19/20 19:39 Pulse Ox 92 L 11/19/20 19:39 - Orders/Labs/Meds Orders: Active Orders 24 hr Category Date Time Status Chest 2V [CR] Stat Exams 11/19/20 19:05 Taken CULTURE BLOOD [BC] Urgent Lab 11/19/20 19:05 Received CULTURE BLOOD [BC] Urgent Lab 11/19/20 19:20 Received Blood Culture x2 Reflex Set [OM.PC] Urgent Oth 11/19/20 19:03 Ordered Labs: Laboratory Tests 11/19/20 11/19/20 11/19/20 Range/Units 19:03 19:03 19:05 WBC 7.9 (4.5-11.0) K/uL RBC 4.27 L (4.30-5.90) M/uL Hgb 12.6 (12.0-15.0) g/dL Hct 40.0 (40.0-54.0) % MCV 94 (80-98) fL MCH 30 (27-31) pg MCHC 32 (32-36) % Plt Count 323 (150-400) K/uL Neut % (Auto) 70.3 H (36-66) % Lymph % (Auto) 15.3 L (24-44) % [place] % (Auto) 11.1 H (2-6) % Eos % (Auto) 2.9 (2-4) % Baso % (Auto) 0.4 (0-1) % Puncture Site Rt.radial ABG pH 7.408 (7.350-7.450) ABG pCO2 38.5 (35.0-42.0) mmHg ABG pO2 62.4 L (75.0-100.0) mmHg ABG HCO3 23.8 (22.0-26.0) mmol/L ABG Total CO2 21.2 L (23.0-27.0) mmol/L ABG O2 Saturation 90.8 L (95.0-98.0) % ABG O2 Content 16.4 (15.0-23.0) %vol ABG Base Excess -0.1 mm/L ABG Hemoglobin 13.1 L (13.5-18.0) g/dL ABG Oxyhemoglobin 88.8 % ABG Carboxyhemoglobin 1.4 (0.0-1.6) % ABG Methemoglobin 0.8 % Trip Test Passed O2 Delivery Device Room air Sodium 140 (140-148) mmol/L Potassium 4.0 (3.6-5.2) mmol/L Chloride 101 (100-108) mmol/L Carbon Dioxide 24 (21-32) mmol/L Anion Gap 14.6 H (5.0-14.0) mmol/L BUN 28 H D (7-18) mg/dL Creatinine 1.9 H D (0.8-1.3) mg/dL Est Cr Clr Drug Dosing 28.02 mL/min Estimated GFR (MDRD) 34 L (>60) Glucose 148 H (74-106) mg/dL Calcium 8.6 (8.5-10.1) mg/dL Total Bilirubin 0.2 D (0.2-1.0) mg/dL AST 46 H D (15-37) U/L ALT 76 D (12-78) U/L Alkaline Phosphatase 185 H (46-116) U/L Total Protein 7.5 (6.4-8.2) g/dL Albumin 3.2 L (3.4-5.0) g/dL Globulin 4.3 H (2.3-3.5) g/dL Albumin/Globulin Ratio 0.7 L (1.2-2.2) - Re-Assessments/Exams Free Text/Narrative Re-Assessment/Exam: 11/19/20 20:34 I reviewed the patient's CBC showing a normal leukocyte count at 7.9 with a normal differential. Arterial blood gas on room air shows a pH of 7.408, CO2 of 38.5, PO2 of 62.4, bicarbonate of 23.8 with an SPO2 of 91%. Comprehensive metabolic profile shows a sodium of 140, potassium 4.0, chloride of 101, bicarbonate of 24, BUN of 28 with a creatinine of 1.9 and a glucose of 148. Liver enzymes are normal. Estimated GFR is 34. Chest x-ray is obtained and shows no significant infiltrates. There is bibasilar atelectasis and poor inspiratory effort when compared to previous chest x-rays there is no acute findings. At this time, I denies anything worrisome for an acute aspiration pneumonia. The patient is saturating 92% on room air the entire time he has been in the ED. I believe he is suitable for discharge back to [facility] so we will arrange for EMS to take him back. Departure - Departure Time of Disposition: 20:38 Disposition: DC/Tfer to Other 70 Clinical Impression: Hypoxia, History of CVA (cerebrovascular accident) - Discharge Information Instructions: Hypoxia Referrals: PCP,None [Primary Care Provider] - Care Plan Goals: Work-up today failed to demonstrate any worrisome findings for an aspiration event or aspiration pneumonia. Sepsis Event Note (ED) - Evaluation Sepsis Screening Result: No Definite Risk - Focused Exam Vital Signs: Vital Signs Temp Pulse Resp BP Pulse Ox 11/19/20 19:39 36.0 C L 82 16 131/74 92 L 11/19/20 18:53 36.0 C L 92 16 131/74 92 L - Problem List & Annotations (1) History of CVA (cerebrovascular accident) SNOMED Code(s): 708458460 Code(s): Z86.73 - PRSNL HX OF TIA (TIA), AND CEREB INFRC W/O RESID DEFICITS Status: Chronic Priority: Medium Current Visit: Yes (2) Hypoxia SNOMED Code(s): 197724541 Code(s): R09.02 - HYPOXEMIA Status: Acute Priority: Medium Current Visit: Yes - Problem List Review Problem List Initiated/Reviewed/Updated: Yes - My Orders Last 24 Hours: My Active Orders 11/19/20 19:03 Blood Culture x2 Reflex Set [OM.PC] Urgent 11/19/20 19:05 Chest 2V [CR] Stat CULTURE BLOOD [BC] Urgent 11/19/20 19:20 CULTURE BLOOD [BC] Urgent - Assessment/Plan Last 24 Hours: My Active Orders 11/19/20 19:03 Blood Culture x2 Reflex Set [OM.PC] Urgent 11/19/20 19:05 Chest 2V [CR] Stat CULTURE BLOOD [BC] Urgent 11/19/20 19:20 CULTURE BLOOD [BC] Urgent
--- NOTE | 2020-11-20 09:19 | CR ---
CHEST: Portable 11/19/2020 at 7:29 PM CLINICAL HISTORY:Hypoxia, possible aspiration COMPARISON:Multiple prior chest x-rays FINDINGS: There is patchy density in both lung bases. Some of this is chronic. Some of this may represent some patchy atelectasis. Underlying infiltrate is not excluded. There is mild elevation of the right hemidiaphragm which is new since prior study. There is air under the right hemidiaphragm. This may be within an interposed bowel loop but free air is not excluded. Impression: Patchy bibasal densities. Some of this is chronic. Some superimposed patchy atelectasis or patchy pneumonia is also consideration. Air under the right hemidiaphragm. This could represent an interposed bowel loop but free intraperitoneal air is not excluded. Left lateral decubitus image of the abdomen should be considered. Emergency room was notified of these findings at the time of this dictation at 9:15 AM
== END 2020-11-19 20:57 | disposition other institution (70) ==
LOC: JP.ED 18:53
DX: R09.02 Hypoxemia (principal); F03.90 Unspecified dementia, unspecified severity, without behavioral disturbance, psychotic disturbance, mood disturbance, and anxiety; I12.9 Hypertensive chronic kidney disease with stage 1 through stage 4 chronic kidney disease, or unspecified chronic kidney disease; N18.30 Chronic kidney disease, stage 3 unspecified; Z79.899 Other long term (current) drug therapy; Z86.73 Personal history of transient ischemic attack (TIA), and cerebral infarction without residual deficits
CPT/HCPCS: 36415; 36600; 71046; 71046-26; 80053; 82803; 85025; 87040; 99285-25

== ENCOUNTER 2021-09-09 09:10 | Inpatient (IN) | payer OTHER, MEDICARE ==
[2021-09-09] MEDS ORDERED: Pantoprazole 40 MG Vial IVPUSH ONE (09:39)
[2021-09-09] MEDS ORDERED: Sodium Chloride 0.9% 10 ML Syringe FLUSH PRN (09:39)
[2021-09-09] MEDS ORDERED: Octreotide 100 MCG/ML SDV IVPUSH ONE (09:40)
[2021-09-09] MEDS ORDERED: Lactated Ringers 1,000 ML IV ONE (09:40)
[2021-09-09] MEDS ORDERED: Ondansetron 4 MG/2 ML SDV IVPUSH ONE (09:42)
[2021-09-09] MEDS ORDERED: cefTRIAXone 1 GM in Sodium Chloride 0.9% 50 ML IV ONE (10:38)
[2021-09-09] MEDS ORDERED: Doxycycline 100 MG in Sodium Chloride 0.9% 100 ML IV ONE (10:39)
[2021-09-09] MEDS ORDERED: Sodium Chloride 0.9% 100 ML ONE (11:25)
[2021-09-09] MEDS ORDERED: Acetaminophen 325 MG Tab PO PRN (18:34)
[2021-09-09] MEDS ORDERED: Magnesium Hydroxide 400 MG/5 ML Susp 30 ML Cup PO PRN (18:37)
[2021-09-09] MEDS ORDERED: Ondansetron 4 MG Tab.DIS PO PRN (18:37)
[2021-09-09] MEDS ORDERED: LORazepam 2 MG/ML SDV IVPUSH PRN (18:37)
[2021-09-09] MEDS ORDERED: Ondansetron 4 MG/2 ML SDV IV PRN (18:37)
[2021-09-09] MEDS ORDERED: MICONAZOLE NITRATE TP SCH (18:45)
[2021-09-09] MEDS: levETIRAcetam 250 MG Tab PO SCH (20:43)
[2021-09-09] MEDS ORDERED: Acetaminophen 325 MG Tab PO SCH (21:00)
[2021-09-09] MEDS ORDERED: OXYBUTYNIN CHLORIDE 5 MG PO SCH (21:00)
[2021-09-09 21:28] LABS: CORONAVIRUS COVID-19 NAA NEGATIVE (NEGATIVE)
[2021-09-09] MEDS: Oxybutynin 5 MG Tab PO SCH (22:18)
[2021-09-10] MEDS ORDERED: Miconazole 2% Crm 30 GM Tube TOP PRN (07:00)
[2021-09-10] MEDS ORDERED: Acetaminophen 325 MG Tab PO PRN (07:49)
[2021-09-10] MEDS: Finasteride 5 MG Tab PO SCH (09:05)
[2021-09-10] MEDS: Sertraline 25 MG Tab PO SCH (09:05)
[2021-09-10] MEDS: Famotidine 20 MG Tab PO SCH (09:06)
[2021-09-10] MEDS: Oxybutynin 5 MG Tab PO SCH ×3 (09:06→20:03)
[2021-09-10] MEDS: levETIRAcetam 250 MG Tab PO SCH ×2 (09:06→20:03)
[2021-09-10] MEDS: Tamsulosin 0.4 MG Cap.ER PO SCH (09:06)
[2021-09-10] MEDS: Lisinopril 10 MG Tab PO SCH (09:07)
[2021-09-10] MEDS: amLODIPine 5 MG Tab PO SCH (09:07)
[2021-09-10] MEDS: Acetaminophen 325 MG Tab PO SCH ×3 (09:08→20:02)
[2021-09-10] MEDS: Doxycycline 100 MG in Sodium Chloride 0.9% 100 ML IV SCH ×2 (10:53→20:05)
[2021-09-10] MEDS ORDERED: Doxycycline 100 MG in Sodium Chloride 0.9% 100 ML IV SCH (12:00)
[2021-09-10] MEDS: cefTRIAXone 1 GM in Sodium Chloride 0.9% 50 ML IV SCH (13:02)
[2021-09-10] MEDS: Pantoprazole 40 MG Vial IVPUSH SCH (15:01)
[2021-09-11] MEDS: Sertraline 25 MG Tab PO SCH (09:16)
[2021-09-11] MEDS: amLODIPine 5 MG Tab PO SCH (09:16)
[2021-09-11] MEDS: Acetaminophen 325 MG Tab PO SCH ×3 (09:16→20:01)
[2021-09-11] MEDS: levETIRAcetam 250 MG Tab PO SCH ×2 (09:17→20:01)
[2021-09-11] MEDS: Famotidine 20 MG Tab PO SCH (09:17)
[2021-09-11] MEDS: Tamsulosin 0.4 MG Cap.ER PO SCH (09:17)
[2021-09-11] MEDS: Finasteride 5 MG Tab PO SCH (09:17)
[2021-09-11] MEDS: Oxybutynin 5 MG Tab PO SCH ×3 (09:17→20:01)
[2021-09-11] MEDS: Lisinopril 10 MG Tab PO SCH (09:17)
[2021-09-11] MEDS: Doxycycline 100 MG Cap PO SCH ×2 (09:26→20:01)
[2021-09-11] MEDS: Docusate Sodium 100 MG Cap PO SCH ×2 (09:26→20:01)
[2021-09-11] MEDS: Ergocalciferol (Vitamin D2) 1.25 MG Cap PO SCH (09:27)
[2021-09-11] MEDS: Doxycycline 100 MG in Sodium Chloride 0.9% 100 ML IV SCH (10:50)
[2021-09-11] MEDS: cefTRIAXone 1 GM in Sodium Chloride 0.9% 50 ML IV SCH (11:38)
[2021-09-11] MEDS: Pantoprazole 40 MG Vial IVPUSH SCH (13:45)
[2021-09-11] MEDS ORDERED: Magnesium Hydroxide 400 MG/5 ML Susp 30 ML Cup PO PRN (15:52)
[2021-09-11] MEDS: Cefdinir 300 MG Cap PO SCH (20:01)
[2021-09-12] MEDS: Oxybutynin 5 MG Tab PO SCH (08:37)
[2021-09-12] MEDS: Docusate Sodium 100 MG Cap PO SCH (08:37)
[2021-09-12] MEDS: Famotidine 20 MG Tab PO SCH (08:37)
[2021-09-12] MEDS: Lisinopril 10 MG Tab PO SCH (08:38)
[2021-09-12] MEDS: Ergocalciferol (Vitamin D2) 1.25 MG Cap PO SCH (08:38)
[2021-09-12] MEDS: amLODIPine 5 MG Tab PO SCH (08:38)
[2021-09-12] MEDS: Cefdinir 300 MG Cap PO SCH (08:38)
[2021-09-12] MEDS: Acetaminophen 325 MG Tab PO SCH (08:38)
[2021-09-12] MEDS: Doxycycline 100 MG Cap PO SCH (08:38)
[2021-09-12] MEDS: levETIRAcetam 250 MG Tab PO SCH (08:38)
[2021-09-12] MEDS: Finasteride 5 MG Tab PO SCH (08:38)
[2021-09-12] MEDS: Sertraline 25 MG Tab PO SCH (08:39)
[2021-09-12] MEDS: Tamsulosin 0.4 MG Cap.ER PO SCH (08:39)
[2021-09-12] MEDS ORDERED: Sodium Chloride 0.9% 250 ML IV ONE (10:30)
== END 2021-09-12 14:30 | disposition home or self-care (01) | DRG 193 ==
LOC: JP.ED 09:10 → JP.MS 17:03
PROVIDERS: ADMIT Hospitalist; ATTEND Hospitalist
DX: J18.9 Pneumonia, unspecified organism (principal); J96.01 Acute respiratory failure with hypoxia; Z66 Do not resuscitate; H54.7 Unspecified visual loss; N18.30 Chronic kidney disease, stage 3 unspecified; I12.9 Hypertensive chronic kidney disease with stage 1 through stage 4 chronic kidney disease, or unspecified chronic kidney disease; F03.90 Unspecified dementia, unspecified severity, without behavioral disturbance, psychotic disturbance, mood disturbance, and anxiety; Z20.822 Contact with and (suspected) exposure to COVID-19; R32 Unspecified urinary incontinence; F32.A Depression, unspecified; R56.9 Unspecified convulsions; N40.1 Benign prostatic hyperplasia with lower urinary tract symptoms; R13.10 Dysphagia, unspecified; Z79.899 Other long term (current) drug therapy; Z86.73 Personal history of transient ischemic attack (TIA), and cerebral infarction without residual deficits; Z98.49 Cataract extraction status, unspecified eye; Z87.891 Personal history of nicotine dependence
CPT/HCPCS: 0241U; 36415; 71045; 71045-26; 80053; 82272; 83605; 83735; 84145; 85025; 85027; 86140; 87040; 92610-GN; 96365; 96367; 96375; 97110-GP; 97161-GP; 97530-GP; 99285; 99285-25; A9270-GY; C9113; J0696; J2354-JA; J2405; J3490; J7050; J7120